=== PATIENT | female | born 1960 | race African-American/Black ===

== ENCOUNTER 2017-07-24 17:24 | Emergency (ER) | payer MEDICAID ==
[~2017-07-24] VITALS: Ht 157.5 cm; Wt 109.0 kg
[~2017-07-24 17:24] MED LIST: METH10TA2
[2017-07-24] MEDS ORDERED: MAGNESIUM/ALUMINUM HYDROXIDE/SIMETHICONE 30ML UDC PO ONE (22:15)
[2017-07-24] MEDS ORDERED: KETOROLAC 30MG/ML VIAL IV ONE (22:15)
[2017-07-24 22:18] LABS: CLARITY URINE CLEAR (CLEAR); COLOR URINE YELLOW (YELLOW); GLUCOSE URINE NEGATIVE (NEGATIVE); KETONES URINE NEGATIVE (NEGATIVE); LEUKOCYTE ESTERASE URINE 1+ (NEGATIVE); NITRITE URINE NEGATIVE (NEGATIVE); OCCULT BLOOD URINE 2+ (NEGATIVE); PROTEIN URINE NEGATIVE (NEGATIVE)
[2017-07-24 22:34] LABS: BASOPHILS % 0.5 % (0.0-2.0); EOSINOPHILS % 0.9 % (0.0-5.0); HEMATOCRIT. 44.2 % (36.0-48.0); HEMOGLOBIN. 15.5 g/dL (12.0-16.0); LYMPHOCYTES % 34.7 % (20.0-50.0); MEAN CORPUSCULAR HEMOGLOBIN 34.4 pg (28.0-32.0); MEAN CORPUSCULAR VOLUME 98.2 fL (81.0-99.0); MEAN PLATELET VOLUME 8.7 fl (7.4-10.4); MONOCYTES % 10.5 % (2.0-8.0); NEUTROPHILS % 53.4 % (40.0-76.0); PLATELET 238 x1000/uL (130-400); RED CELL DISTRIBUTION WIDTH 13.3 % (11.6-14.6)
[2017-07-24 22:39] LABS: PROTHROMBIN TIME 10.6 sec (9.4-11.6)
[2017-07-24 22:41] LABS: CHLORIDE 99 mEq/L (98-107)
[2017-07-24 22:51] LABS: CARBON DIOXIDE 31 mEq/L (21-32)
[2017-07-24 23:20] VITALS: BP 122/80
== END 2017-07-24 23:26 | disposition home or self-care (01) ==
LOC: ER 17:40
DX: N39.0 Urinary tract infection, site not specified (principal); M54.5 Low back pain; I10 Essential (primary) hypertension; F17.210 Nicotine dependence, cigarettes, uncomplicated
CPT/HCPCS: 36415; 80053; 81001; 85025; 85610; 87086; 93005; 96374; 99285; J1885; Z7610